=== PATIENT | female | born 1995 | race Caucasian/White ===

== ENCOUNTER 2023-09-07 11:10 | Observation (INO) ==
--- NOTE | 2023-09-07 11:41 | ED.PDOC ---
General ED Provider: Dr. PARKER GIORDANO MD Chief Complaint: Chest Pain Stated Complaint: Pt presents to ER from home accompanied by her and 8- mo old daughter c/o right-sided chest pain, chills, anxiety, nausea. 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 Denies any history of chemotherapy or radiation treatment. Was supposed to receive annual CT scans for surveillance but was lost to follow-up approximately 10 years ago. Unsure if she may be . Says pain is localized to lower ribs/RUQ and is colicky in nature. h/o SVT during previous . No other complaints. Time Seen by Provider: 09/07/23 11:30 Mode of Arrival: Walk-In Information Source: Patient Exam Limitations: No limitations Nursing and Triage Documentation Reviewed and Agree: Yes Cardiovascular Complaint Exam Chest Pain Complaint/Exam Onset: Sudden Duration: ~1-hour Symptoms Are: Still present Timing: Intermittent Initial Severity: Moderate Current Severity: Moderate Location: Reports Right lateral Pain Radiates: Reports Right shoulder Character: Reports Aching Aggravating: Reports Movement and Deep breaths Alleviating: Reports None Associated Signs and Symptoms: Reports Nausea Differential Diagnoses: Chest Wall Pain, GI Diseasae, Lower Resp. Infection and Pulmonary Embolism Review of Systems Review Of Systems Constitutional: Reports Chills All Other Systems: Reviewed and Negative [facility] Medical History (Updated 09/07/23 @ 18:37 by ARIS LAIRD, JAMES) Lung malignancy right lower lobe removed C34.90 - Malignant neoplasm of unspecified part of unspecified bronchus or lung (ICD-10) Supraventricular tachycardia during O99.419 - Diseases of the circulatory system complicating , unspecified trimester (ICD-10) I47.10 - Supraventricular tachycardia, unspecified (ICD-10) Family History (Updated 09/07/23 @ 18:38 by ARIS LAIRD RN) Mother Heart attack Social History (Updated 09/07/23 @ 18:38 by ARIS LAIRD RN) Smoking and tobacco status: Current some day smoker Alcohol intake: current Substance use type: does not use Surgical History (Updated 09/07/23 @ 18:37 by ARIS LAIRD RN) Hx of tonsillectomy Z90.89 - Acquired absence of other organs (ICD-10) Hx of appendectomy Z90.49 - Acquired absence of other specified parts of digestive tract (ICD- 10) Female Reproductive History Menstrual Hx Hysterectomy: No Hx Tubal Ligation: No Physical Exam Physical Exam Appearance: Reports Ill-appearing Ill-appearing: Mild Pain Distress: Mild Eyes: Reports EOMI ENT: Reports Ears normal, Nose normal and Oropharynx normal Neck: Supple Respiratory: Reports Airway patent, Breath sounds clear and Breath sounds equal Cardiovascular: Reports RRR and No murmur GI/: Reports Bowel sounds normal, Tender (RUQ; +Rogers's) and Other Musculoskeletal: Reports Normal strength and ROM intact Skin: Reports Warm and Dry Neurological: Reports Sensation intact and Motor intact Psychiatric: Reports Affect appropriate and Mood appropriate Interpretation EKG Interpretation EKG Interpretation By: ED Physician Time of EKG #1: 11:21 Rate: Normal Rhythm: Sinus Ectopy: None Worth: NL ST Segment: Normal Interpretation: Normal. Radiology Interpretation Radiology Interpretation By: ED Physician Radiology Results: Positive Exam Interpreted: CXR Xray Comments: RML infiltrate. Physician Notification Case Discussed Physician Notified: DILCIA Westbrook Time of Notification: 16:49 Comments: Spoke with on-call hospitalist (DILCIA Westbrook) regarding patient status and current workup and plan. Collaborated with supervising physician (Dr. Rupinder Vaca) who agreed to accept patient for observation admission. Will continue workup including MRCP and transfer to higher level facility if warranted. Admit/Transition Orders Entered by ED Provider: No (Hospitalist to write admission orders.) Admit To: Observation Critical Care Note Critical Care Note Total Critical Care Time (mins): 120 Course Course 09/07/23 11:30 09/07/23 11:30 Orders, Labs, Meds: Lab Review 09/07/23 09/07/23 09/07/23 11:30 11:39 11:45 WBC 6.88 RBC 4.63 Hgb 12.4 Hct 39.8 MCV 86.0 MCH 26.8 L MCHC 31.2 L RDW Coeff of Pao 13.4 Plt Count 462 H Immature Gran % (Auto) 0.4 Neut % (Auto) 59.4 Lymph % (Auto) 25.0 [place] % (Auto) 14.1 H Eos % (Auto) 0.7 Baso % (Auto) 0.4 Neut # (Auto) 4.1 Lymph # (Auto) 1.7 [place] # (Auto) 1.0 Eos # (Auto) 0.1 Baso # (Auto) 0.0 Immature Gran # (Auto) 0.0 Sodium 137.8 Potassium 3.86 Chloride 103.2 Carbon Dioxide 27.1 Anion Gap 11.36 BUN 16.7 Creatinine 0.64 Estimated GFR (MDRD) 110.00 BUN/Creatinine Ratio 26.09 Glucose 96.7 Calcium 9.08 Total Bilirubin 0.40 AST 41.0 H ALT 42.0 H Alkaline Phosphatase 136.2 H Total Creatine Kinase 72.6 Troponin I < 0.012 Total Protein 8.69 H Albumin 4.49 Globulin 4.20 Albumin/Globulin Ratio 1.06 Lipase 54.9 Procalcitonin < 0.05 D-Dimer 1635.73 H Urine Color Yellow Urine Clarity Clear Urine pH 6.0 Ur Specific [place] >=1.030 Urine Protein 1+ H Urine Glucose (UA) Negative Urine Ketones Negative Urine Blood Negative Urine Nitrite Negative Urine Bilirubin Negative Urine Urobilinogen 0.2 Ur Leukocyte Esterase Negative Ur Squamous Epith Cells 0-2 Urine Mucus 1+ Urine Test Negative Urine Opiates Screen Negative Ur Oxycodone Screen Negative Urine Methadone Screen Negative Ur Barbiturates Screen Negative U Tricyclic Antidepress Negative Ur Phencyclidine Scrn Negative Ur Amphetamine Screen Negative U Methamphetamines Scrn Negative U Benzodiazepines Scrn Negative Urine Cocaine Screen Negative U Cannabinoids Screen Negative Orders Category Date Time Status PLACE PATIENT OBSERVATION .TO MEDSURG (MONITORED BED ADMISSION 09/07/23 16:50 Active ) EKG-(ED ONLY) Stat CARDIO 09/07/23 11:31 Completed ACTIVITY .Up ad Negar CARE 09/07/23 16:50 Active INTAKE & OUTPUT Q8HR CARE 09/07/23 16:50 Completed NPO REMINDER: IMAGING ONCE CARE 09/07/23 12:33 Completed NPO REMINDER: IMAGING ONCE CARE 09/07/23 13:09 Completed NPO REMINDER: IMAGING ONCE CARE 09/07/23 13:42 Completed NPO REMINDER: IMAGING ONCE CARE 09/07/23 16:52 Completed TELEMETRY MONITORING TELE CARE 09/07/23 16:51 Active TELEMETRY MONITORING TELE CARE 09/07/23 17:01 Completed VITAL SIGNS Q4HR CARE 09/07/23 16:51 Active NPO [NOTHING BY MOUTH] DIETARY 09/07/23 Dinner Ordered REGULAR DIET DIETARY 09/07/23 Dinner Ordered CBC W/ AUTO DIFF DAILY@0600 LAB 09/08/23 06:00 Ordered CBC W/ AUTO DIFF DAILY@0600 LAB 09/09/23 06:00 Ordered CBC W/ AUTO DIFF Stat LAB 09/07/23 11:30 Completed COMPREHENSIVE METABOLIC PANEL DAILY@0600 LAB 09/08/23 06:00 Ordered COMPREHENSIVE METABOLIC PANEL DAILY@0600 LAB 09/09/23 06:00 Ordered COMPREHENSIVE METABOLIC PANEL Stat LAB 09/07/23 11:30 Completed COVID [SARS COV-2 RNA RAPID FANTA] Stat LAB 09/07/23 Completed CREATINE KINASE Stat LAB 09/07/23 11:30 Completed D-DIMER Stat LAB 09/07/23 11:30 Completed DRUG SCREEN, URINE, RAPID Stat LAB 09/07/23 11:45 Completed LIPASE Stat LAB 09/07/23 11:30 Completed PROCALCITONIN Stat LAB 09/07/23 11:39 Completed TROPONIN I Stat LAB 09/07/23 11:30 Completed URINALYSIS C & S IF INDICATED Stat LAB 09/07/23 11:45 Completed URINE Stat LAB 09/07/23 11:45 Completed Azithromycin Inj [Zithromax] 500 mg Meds 09/07/23 16:45 Discontinued 0.9 % Sodium Chloride [Sodium Chloride] 250 ml IV ONCE Ceftriaxone/D5w 2 gm Premix [Rocephin 2 gm/50 ml D5w] Meds 09/07/23 13:18 Discontinued 2 gm in 50 ml IV ONCE Ketorolac Tromethamine [Toradol] Meds 09/07/23 16:50 Active 15 mg IVP Q6HR PRN Sodium Chloride 0.9% [Sodium Chloride] 1,000 ml Meds 09/07/23 16:43 Discontinued IV 130 mls/hr Sodium Chloride 0.9% [Sodium Chloride] 1,000 ml Meds 09/07/23 12:34 Discontinued IV BOLUS CHEST, 1V AP ONLY Stat RADS 09/07/23 11:31 Completed CTA CHEST PE PROTOCOL Stat RADS 09/07/23 12:33 Completed MRI ABDOMEN W/WO CONTRAST Routine RADS 09/08/23 07:00 Ordered U/S ABDOMEN RT UPPER QUAD Stat RADS 09/07/23 13:42 Completed Medications Generic Name Dose Route Start Last Admin Trade Name Freq PRN Reason Stop Dose Admin Ketorolac Tromethamine 15 mg 09/07/23 16:50 Ketorolac Tromethamine 15 Mg/Ml Vial IVP 09/11/23 16:51 Q6HR PRN pain Discontinued Medications Generic Name Dose Route Start Last Admin Trade Name Freq PRN Reason Stop Dose Admin Sodium Chloride 1,000 mls @ 1,000 mls/hr 09/07/23 12:34 09/07/23 14:01 Sodium Chloride IV 09/07/23 13:33 Infused BOLUS STA Infusion CEFTRIAXONE/D5W 2 GM PREMIX 2 gm in 50 mls @ 100 mls/hr 09/07/23 13:18 09/07/23 13:31 Rocephin 2 Gm/50 Ml D5w IV 09/07/23 13:47 100 mls/hr ONCE ONE Administration Sodium Chloride 1,000 mls @ 130 mls/hr 09/07/23 16:43 09/07/23 18:16 Sodium Chloride IV 09/08/23 00:24 130 mls/hr .Q7H42M STA Administration Azithromycin 500 mg/ Sodium 250 mls @ 250 mls/hr 09/07/23 16:45 09/07/23 16:54 Chloride IV 09/07/23 17:44 250 mls/hr ONCE ONE Administration Vital Signs: Temp Pulse Resp BP Pulse Ox 09/07/23 12:32 77 20 108/70 98 09/07/23 11:22 98.1 F 90 16 124/75 99 PRICILLA Risk Score PRICILLA Risk Score: Risk Score Odds of by 30D 0 0.1 (0.1-0.2) 1 0.3 (0.2-0.3) 2 0.4 (0.3-0.5) 3 0.7 (0.6-0.9) 4 1.2 (1.0-1.5) 5 2.2 (1.9-2.6) 6 3.0 (2.5-3.6) 7 4.8 (3.8-6.1) Discharge Plan Discharge Patient Disposition: PLACED OBSERVATION Discharge Problem: Right middle lobe pulmonary infiltrate, Choledocholithiasis Did you review [place] UROLOGY TEACHER for ALL controlled substances?: Not Applicable ED Provider: PARKER GIORDANO Condition: Good Physician Progress Note: [address] Report : [id number] Signed Patient: ESTER FENTON Acct:[id number] Medical Record: [id number] : 1995 Loc: ED Room/Bed: Age/Sex: 27 / F ADM Status: REG ER Date of Service: 09/07/23 Ordering Physician: PARKER GIORDANO MD Procedure(s): CTA CHEST PE PROTOCOL Report Number(s): [id number] Accession Number(s): [id number] cc: PARKER GIORDANO MD EXAM: CT ANGIOGRAM CHEST WITH INTRAVENOUS CONTRAST 09/07/2023. MULTI PLANAR REFORMATTED IMAGES OBTAINED. MIP AND THREE-DIMENSIONAL RECONSTRUCTED IMAGES PROVIDED HISTORY: Elevated D-dimer chest pain COMPARISON: 09/07/2023 FINDINGS: The heart size appears within normal limits. There is no pericardial effusion. There are no pulmonary arterial filling defects to suggest pulmonary embolus. Right hilar lymphadenopathy is present with adjacent right middle lobe consolidation. Occlusion of small airways to the right middle lobe at the level of the right hilum. Posterior right hilar lymph node on image 104 measures 1.6 x 1.2 cm. Right hilar lymph node on image 99 measures 1.4 x 1.5 cm. Consolidation extends from this level peripherally throughout the right middle lobe. This likely represents pneumonia with adjacent right hilar lymphadenopathy. Malignancy cannot be excluded on this study. Short-term follow-up CT of the chest is recommended following appropriate medical management. Follow-up is needed to exclude underlying malignancy and document resolution. The lungs are otherwise well aerated. IMPRESSION: 1. No pulmonary embolus. 2. Right hilar lymphadenopathy. Reference measurements above. 3. Consolidation extends from the level of the right hilum peripheral through the right middle lobe. Occlusion of small airways extending to the right middle lobe at the level of the right hilar consolidation. This most likely represents pneumonia. Malignancy cannot be excluded. Short-term follow-up CT is recommended following appropriate medical management to document resolution and exclude underlying malignancy. All CT scans are performed using dose optimization techniques as appropriate to the performed exam and include at least one of the following: Automated exposure control, adjustment of the mA and/or kV according to size, and the use of iterative reconstruction technique. Dictated By: SARWAT CHAMPAGNE Signed By: SARWAT CHAMPAGNE Dictated Date/Time: 09/07/23 1325 Transcribed Date/Time: 09/07/23 1325 Signed Date/Time: 09/07/23 0453 Waiter And Cashier: Sarwat Champagne, ([id number]) Boiler Installer: SARWAT CHAMPAGNE (DLF) Report Date: 09/07/2023 15:10:00 Report Status: Final Begin of Report Content EXAM: RIGHT UPPER QUADRANT ULTRASOUND OF 09/07/2023 HISTORY: Pain. Gallstones COMPARISON: 05/15/2023, 07/04/2023 FINDINGS: The liver shows no acute abnormality. Antegrade portal flow. Gallstones are present. Gallbladder wall 2 mm thickness which is within normal limits. No pericholecystic fluid. There is suggestion of a stone within the common bile duct. Common bile duct approximately 6 mm diameter. The common bile duct previously measured 3 mm diameter. The pancreas shows no acute process. The right kidney measures up to 9.1 cm. No hydronephrosis. IMPRESSION: 1. Cholelithiasis. No evidence of gallbladder wall thickening. 2. Interval increase in size of the common bile duct up to 6 mm diameter. This previously measured 3 mm diameter. There is suggestion of choledocholithiasis. CT as well as MRCP could be considered for further evaluation. Electronically Signed By: Sarwat Champagne M.D. Signing Date: 2023-09-07 15:10
[2023-09-07 11:45] LABS: BASOPHILS % (AUTO) 0.4 % (0.0-3.0); EOSINOPHILS # (AUTO) 0.1 K/ul (0.0-0.7); EOSINOPHILS % (AUTO) 0.7 % (0.0-7.0); HEMATOCRIT 39.8 % (37.0-47.0); HEMOGLOBIN 12.4 g/dl (12.0-16.0); IMMATURE GRANULOCYTE % (AUTO) 0.4 % (0.0-5.0); LYMPHOCYTES # (AUTO) 1.7 K/uL (0.60-3.4); MEAN CORPUSCULAR HEMOGLOBIN 26.8 pg (27.0-31.0); MEAN CORPUSCULAR HGB CONC 31.2 (31.8-35.4); MONOCYTES % (AUTO) 14.1 (0-10); NEUTROPHILS # (AUTO) 4.1 K/ul (2.0-6.9); NEUTROPHILS % (AUTO) 59.4 % (42.2-75.2); PLATELET COUNT 462 10^3/uL (140-440); RDW COEFFICIENT OF VARIATION 13.4 % (11.6-14.8); RED BLOOD COUNT 4.63 10^6/ul (4.20-5.40); WHITE BLOOD COUNT 6.88 K/ul (4.6-10.2)
[2023-09-07 11:54] LABS: BILIRUBIN,URINE Negative (NEGATIVE); CLARITY,URINE Clear (CLEAR); COLOR,URINE Yellow (YELLOW); GLUCOSE, URINE (UA) Negative (NEGATIVE); KETONES,URINE Negative (NEGATIVE); LEUKOCYTE ESTERASE ,URINE Negative (NEGATIVE); NITRITE,URINE Negative (NEGATIVE); PROTEIN,URINE 1+ (NEGATIVE); URINE, BLOOD Negative (NEGATIVE); UROBILINOGEN,URINE 0.2 (0.2)
[2023-09-07 11:56] LABS: URINE PREGNANCY TEST NEGATIVE (NEGATIVE)
[2023-09-07 11:59] LABS: ALBUMIN 4.49 g/dL (3.5-5.0); ALKALINE PHOSPHATASE 136.2 U/L (38-126); BLOOD UREA NITROGEN 16.7 mg/dL (7-17); CALCIUM 9.08 mg/dL (8.4-10.2); CARBON DIOXIDE 27.1 mmol/L (22-30.0); CHLORIDE 103.2 mmol/L (98-107); CREATINE KINASE 72.6 U/L (30-135); CREATININE 0.64 mg/dL (0.60-1.30); GLUCOSE 96.7 mg/dL (74-106); LIPASE 54.9 U/L (23-300); POTASSIUM 3.86 mmol/L (3.5-5.1); SODIUM 137.8 mmol/L (134.5-145); TOTAL PROTEIN 8.69 g/dL (6.3-8.2)
[2023-09-07 12:04] LABS: AMPHETAMINE SCREEN,URINE NEGATIVE (NEGATIVE); BARBITURATE SCREEN,URINE NEGATIVE (NEGATIVE); BENZODIAZEPINES SCREEN,URINE NEGATIVE (NEGATIVE); CANNABINOID SCREEN,URINE NEGATIVE (NEGATIVE); COCAIN SCREEN,URINE NEGATIVE (NEGATIVE); METHADONE URINE SCREEN NEGATIVE (NEGATIVE); METHAMPHETAMINES SCREEN,URINE NEGATIVE (NEGATIVE); OPIATE SCREEN,URINE NEGATIVE (NEGATIVE); OXYCODONE URINE SCREEN NEGATIVE (NEGATIVE); PHENCYCLIDINE SCREEN,URINE NEGATIVE (NEGATIVE); TRICYCLIC ANTIDEPRESSANTS URIN NEGATIVE (NEGATIVE)
[2023-09-07 12:11] LABS: TROPONIN I < 0.012 ng/ml (0.0000-0.120)
[2023-09-07 12:20] LABS: SQUAMOUS EPITHELIAL CELL,UR 0-2 (0-5)
--- NOTE | 2023-09-07 12:20 | DI ---
EXAM: CHEST RADIOGRAPH TECHNIQUE: Single frontal chest radiograph. HISTORY: Chest pain COMPARISON: 05/15/2023 FINDINGS: There is a patchy infiltrate in the right lower lobe. The left lung is clear. No effusions. The heart size is normal. The osseous structures are unremarkable. IMPRESSION: 1. Findings suggesting developing right lower lobe pneumonia
[2023-09-07 12:21] LABS: MUCUS,URINE 1+ (NOT PRESENT)
[2023-09-07] MEDS ORDERED: SODIUM CHLORIDE 1,000 ML IV STA ×2 (12:34→16:43)
[2023-09-07] MEDS ORDERED: ROCEPHIN 2 GM/50 ML D5W 2 GM/50 ML BAG IV ONE (13:18)
--- NOTE | 2023-09-07 13:43 | CT ---
EXAM: CT ANGIOGRAM CHEST WITH INTRAVENOUS CONTRAST 09/07/2023. MULTI PLANAR REFORMATTED IMAGES OBTAI LUCIA. MIP AND THREE-DIMENSIONAL RECONSTRUCTED IMAGES PROVIDED HISTORY: Elevated D-dimer chest pain COMPARISON: 09/07/2023 FINDINGS: The heart size appears within normal limits. There is no pericardial effusion. There are no pulmonary arterial filling defects to suggest pulmonary embolus. Right hilar lymphadenopathy is present with adjacent right middle lobe consolidation. Occlusion of s mall airways to the right middle lobe at the level of the right hilum. Posterior right hilar lymph n ode on image 104 measures 1.6 x 1.2 cm. Right hilar lymph node on image 99 measures 1.4 x 1.5 cm. C onsolidation extends from this level peripherally throughout the right middle lobe. This likely repr esents pneumonia with adjacent right hilar lymphadenopathy. Malignancy cannot be excluded on this st udy. Short-term follow-up CT of the chest is recommended following appropriate medical management. Follow-up is needed to exclude underlying malignancy and document resolution. The lungs are otherwis e well aerated. IMPRESSION: 1. No pulmonary embolus. 2. Right hilar lymphadenopathy. Reference measurements above. 3. Consolidation extends from the level of the right hilum peripheral through the right middle lobe. Occlusion of small airways extending to the right middle lobe at the level of the right hilar conso lidation. This most likely represents pneumonia. Malignancy cannot be excluded. Short-term follow- up CT is recommended following appropriate medical management to document resolution and exclude unde rlying malignancy. All CT scans are performed using dose optimization techniques as appropriate to the performed exam an d include at least one of the following: Automated exposure control, adjustment of the mA and/or kV according t o size, and the use of iterative reconstruction technique.
--- NOTE | 2023-09-07 15:15 | US ---
EXAM: RIGHT UPPER QUADRANT ULTRASOUND OF 09/07/2023 HISTORY: Pain. Gallstones COMPARISON: 05/15/2023, 07/04/2023 FINDINGS: The liver shows no acute abnormality. Antegrade portal flow. Gallstones are present. Gal lbladder wall 2 mm thickness which is within normal limits. No pericholecystic fluid. There is suggestion of a stone within the common bile duct. Common bile duct approximately 6 mm diam eter. The common bile duct previously measured 3 mm diameter. The pancreas shows no acute process. The right kidney measures up to 9.1 cm. No hydronephrosis. IMPRESSION: 1. Cholelithiasis. No evidence of gallbladder wall thickening. 2. Interval increase in size of the common bile duct up to 6 mm diameter. This previously measured 3 mm diameter. There is suggestion of choledocholithiasis. CT as well as MRCP could be considered f or further evaluation.
[2023-09-07] MEDS ORDERED: ZITHROMAX 500 MG in SODIUM CHLORIDE 250 ML IV ONE (16:45)
[2023-09-07] MEDS ORDERED: TORADOL IVP PRN (16:50)
[2023-09-07 17:52] LABS: SARS COV-2 RNA RAPID NAAT NEGATIVE (NEGATIVE)
[2023-09-07 18:45] VITALS: BMI 31.5
[2023-09-08 06:18] LABS: BASOPHILS % (AUTO) 0.9 % (0.0-3.0); EOSINOPHILS # (AUTO) 0.1 K/ul (0.0-0.7); EOSINOPHILS % (AUTO) 1.7 % (0.0-7.0); HEMOGLOBIN 10.4 g/dl (12.0-16.0); IMMATURE GRANULOCYTE % (AUTO) 0.2 % (0.0-5.0); LYMPHOCYTES # (AUTO) 1.4 K/uL (0.60-3.4); LYMPHOCYTES % (AUTO) 29.9 (10.0-50.0); MEAN CORPUSCULAR HEMOGLOBIN 27.2 pg (27.0-31.0); MEAN CORPUSCULAR HGB CONC 31.3 (31.8-35.4); MEAN CORPUSCULAR VOLUME 86.9 fl (81.0-99.0); MONOCYTES # (AUTO) 0.8 K/uL (0.4-2.0); MONOCYTES % (AUTO) 17.9 (0-10); NEUTROPHILS # (AUTO) 2.3 K/ul (2.0-6.9); NEUTROPHILS % (AUTO) 49.4 % (42.2-75.2); PLATELET COUNT 373 10^3/uL (140-440); RDW COEFFICIENT OF VARIATION 13.2 % (11.6-14.8); RED BLOOD COUNT 3.82 10^6/ul (4.20-5.40); WHITE BLOOD COUNT 4.69 K/ul (4.6-10.2)
[2023-09-08 06:19] LABS: HEMATOCRIT 33.2 % (37.0-47.0)
[2023-09-08 06:25] LABS: ALANINE AMINOTRANSFERASE 30.9 U/L (0-35); ALBUMIN 3.68 g/dL (3.5-5.0); ALKALINE PHOSPHATASE 103.2 U/L (38-126); ASPARTATE AMINO TRANSFERASE 28.2 U/L (14-36); BILIRUBIN,TOTAL 0.44 mg/dL (0.2-1.3); BLOOD UREA NITROGEN 16.4 mg/dL (7-17); CALCIUM 8.42 mg/dL (8.4-10.2); CARBON DIOXIDE 25.5 mmol/L (22-30.0); CHLORIDE 106.7 mmol/L (98-107); CREATININE 0.66 mg/dL (0.60-1.30); GLUCOSE 89.8 mg/dL (74-106); POTASSIUM 4.33 mmol/L (3.5-5.1); SODIUM 137.3 mmol/L (134.5-145); TOTAL PROTEIN 7.16 g/dL (6.3-8.2)
[2023-09-08 09:59] VITALS: RESP 18
--- NOTE | 2023-09-08 15:13 | MRI ---
EXAM: MRI ABDOMEN WITH AND WITHOUT CONTRAST COMPARISON: Ultrasound abdomen 09/07/23 HISTORY: Right upper quadrant pain. TECHNIQUE: Multiplanar multisequence MRI of the abdomen before and after administration of IV contras t. MRCP including 3-D MRCP sequence performed. FINDINGS: Liver: Normal contour. No hepatic steatosis. No suspicious hepatic lesions. Gallbladder: Gallbladder sludge. No surrounding inflammatory changes. Bile ducts: No intra or extrahepatic biliary ductal dilatation. CBD measures 0.5 cm. No visible cho ledocholithiasis. Spleen: The spleen is not enlarged. Pancreas: Normal signal intensity and enhancement. The main pancreatic duct is not dilated. Adrenal glands: Within normal limits. Kidneys: No hydronephrosis. Vessels: The major vessels are patent. Bowel: Normal caliber. Lymph nodes: Few lymph nodes in the penny hepatis measuring up to 1.7 cm in short axis, nonspecific and likely reactive. Attention on follow-up recommended. Osseous structures: No acute findings. Lower thorax: Bibasilar atelectasis and/or pneumonia; right greater than left. Abdominal wall: Within normal limits. IMPRESSION: - Gallbladder sludge. No surrounding inflammatory changes. No intra or extrahepatic biliary ductal dilatation. CBD measures 0.5 cm. No visible choledocholithiasis. - Gallbladder sludge. No surrounding inflammatory changes. - Few lymph nodes in the penny hepatis measuring up to 1.7 cm in short axis, nonspecific and likely r eactive. Attention on follow-up recommended. - Bibasilar atelectasis and/or pneumonia; right greater than left.
[2023-09-08 15:29] VITALS: BP 125/78; PULSE 89; TEMP 97.8
--- NOTE | 2023-09-08 17:27 | PCM.SS ---
Provider Provider: ETIENNE CRUZ, [facility] Ad[facility] Date Admission Date: 09/07/23 Discharge Date Discharge Date: 09/08/23 Chief Complaint Reason For Visit: CHEST PAIN,CHOLECOCHOLITHIASIS History of Present Illness History of Present Illness: Admitted 09/07/23 18:08, this 27 year old /WHITE/F presented to the ER with right sided chest pain, anxiety, chills, nausea. 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 Describes the pain as colicky. Has pmh of lung cancer with RLL lobectomy and gallstones. Did not require chemo or radiation treatment. Was supposed to have annual CT scans for surveillance but did not continue to follow-up approx. 10 years ago. Chest pain work-up negative. Scan of abdomen showed cholelithiasis concern for choledoco. Admitted to med/surg for MRCP to rule out. Was given azith and rocephin due to suspicion for pneumonia on scans. Not continued due to no elevation in white count and no symptoms. Patient denied any further pain throughout the night and on exam. Only reports complaints of fatigue. [facility] Medical History Lung malignancy right lower lobe removed C34.90 - Malignant neoplasm of unspecified part of unspecified bronchus or lung (ICD-10) Supraventricular tachycardia during O99.419 - Diseases of the circulatory system complicating , unspecified trimester (ICD-10) I47.10 - Supraventricular tachycardia, unspecified (ICD-10) Surgical History Hx of tonsillectomy Z90.89 - Acquired absence of other organs (ICD-10) Hx of appendectomy Z90.49 - Acquired absence of other specified parts of digestive tract (ICD- 10) Family History Mother Heart attack Social History Smoking and tobacco status: Current some day smoker Alcohol intake: current Substance use type: does not use Medications Mecications: Medications at Discharge (Home Meds & RX) omeprazole 40 mg capsule,delayed release 40 mg PO DAILY 09/07/23 Allergies Allergies Allergy/AdvReac Type Severity Reaction Status Date / Time No Known Allergies Allergy Verified 09/07/23 11:30 Review of Systems Constitutional: Reports No symptoms and Fatigue Head: Reports Normocephalic and Atraumatic Eyes: Reports No symptoms Ears: Reports No symptoms Nose: Reports No symptoms Mouth: Reports No symptoms Throat: Reports No symptoms Cardiovascular: Reports Chest pain Respiratory: Reports No symptoms Gastrointestinal: Reports No symptoms Genitourinary: Reports No Symptoms Musculoskeletal: Reports No symptoms Endocrine: Reports No symptoms Hematology: Reports No symptoms Immunology: Reports No symptoms Neurological: Reports No symptoms Psychiatric: Reports No symptoms Physical Examination Appearance: Positive No Apparent Distress and Alert and Oriented x3 Head: Positive Normocephalic Eyes: Positive MIKAELA Neck: Positive Supple, Non-Tender and Trachea Midline Heart: Positive RRR and No Murmurs Respiratory: Positive Airway patent, Breath Sounds Clear, Bilaterally and Breath Sounds Equal GI/: Positive Soft, Nontender, Bowel sounds normal and No Distention Extremities: Positive Pedal Pulses Palpable Bilaterally Neurological: Positive Normal Gait, Sensation Intact, Motor Intact, Reflexes Intact, Alert and Oriented Psychiatric: Positive Normal Judgement, Normal Insight and Affect Appropriate Vital Signs (Last 4 Hours) Vital Signs Last 4 Hours: Vital Signs: Last 4 Hours 09/08/23 13:57 09/08/23 14:00 09/08/23 14:50 Temperature 97.8 F Temperature Source Tympanic Pulse Rate 89 Respiratory Rate 18 Blood Pressure 125/78 Blood Pressure Mean 93 Blood Pressure Location Right Arm Blood Pressure Position Sitting O2 Sat by Pulse Oximetry 98 Oxygen Delivery Method Room Air Room Air Room Air Labs This Visit Labs This Visit: Labs This Visit 09/07/23 09/07/23 09/07/23 11:30 11:39 11:45 WBC 6.88 RBC 4.63 Hgb 12.4 Hct 39.8 MCV 86.0 MCH 26.8 L MCHC 31.2 L RDW Coeff of Pao 13.4 Plt Count 462 H Immature Gran % (Auto) 0.4 Neut % (Auto) 59.4 Lymph % (Auto) 25.0 [place] % (Auto) 14.1 H Eos % (Auto) 0.7 Baso % (Auto) 0.4 Neut # (Auto) 4.1 Lymph # (Auto) 1.7 [place] # (Auto) 1.0 Eos # (Auto) 0.1 Baso # (Auto) 0.0 Immature Gran # (Auto) 0.0 Sodium 137.8 Potassium 3.86 Chloride 103.2 Carbon Dioxide 27.1 Anion Gap 11.36 BUN 16.7 Creatinine 0.64 Estimated GFR (MDRD) 110.00 BUN/Creatinine Ratio 26.09 Glucose 96.7 Calcium 9.08 Total Bilirubin 0.40 AST 41.0 H ALT 42.0 H Alkaline Phosphatase 136.2 H Total Creatine Kinase 72.6 Troponin I < 0.012 Total Protein 8.69 H Albumin 4.49 Globulin 4.20 Albumin/Globulin Ratio 1.06 Lipase 54.9 Procalcitonin < 0.05 D-Dimer 1635.73 H Urine Color Yellow Urine Clarity Clear Urine pH 6.0 Ur Specific [place] >=1.030 Urine Protein 1+ H Urine Glucose (UA) Negative Urine Ketones Negative Urine Blood Negative Urine Nitrite Negative Urine Bilirubin Negative Urine Urobilinogen 0.2 Ur Leukocyte Esterase Negative Ur Squamous Epith Cells 0-2 Urine Mucus 1+ Urine Test Negative Urine Opiates Screen Negative Ur Oxycodone Screen Negative Urine Methadone Screen Negative Ur Barbiturates Screen Negative U Tricyclic Antidepress Negative Ur Phencyclidine Scrn Negative Ur Amphetamine Screen Negative U Methamphetamines Scrn Negative U Benzodiazepines Scrn Negative Urine Cocaine Screen Negative U Cannabinoids Screen Negative SARS CoV-2 RNA Rapid FANTA 09/07/23 09/08/23 Unknown 05:21 WBC 4.69 RBC 3.82 L Hgb 10.4 L Hct 33.2 L D MCV 86.9 MCH 27.2 MCHC 31.3 L RDW Coeff of Pao 13.2 Plt Count 373 Immature Gran % (Auto) 0.2 Neut % (Auto) 49.4 Lymph % (Auto) 29.9 [place] % (Auto) 17.9 H Eos % (Auto) 1.7 Baso % (Auto) 0.9 Neut # (Auto) 2.3 Lymph # (Auto) 1.4 [place] # (Auto) 0.8 Eos # (Auto) 0.1 Baso # (Auto) 0.0 Immature Gran # (Auto) 0.0 Sodium 137.3 Potassium 4.33 Chloride 106.7 Carbon Dioxide 25.5 Anion Gap 9.43 BUN 16.4 Creatinine 0.66 Estimated GFR (MDRD) 107.00 BUN/Creatinine Ratio 24.84 Glucose 89.8 Calcium 8.42 Total Bilirubin 0.44 AST 28.2 ALT 30.9 Alkaline Phosphatase 103.2 D Total Creatine Kinase Troponin I Total Protein 7.16 Albumin 3.68 Globulin 3.48 Albumin/Globulin Ratio 1.05 Lipase Procalcitonin D-Dimer Urine Color Urine Clarity Urine pH Ur Specific [place] Urine Protein Urine Glucose (UA) Urine Ketones Urine Blood Urine Nitrite Urine Bilirubin Urine Urobilinogen Ur Leukocyte Esterase Ur Squamous Epith Cells Urine Mucus Urine Test Urine Opiates Screen Ur Oxycodone Screen Urine Methadone Screen Ur Barbiturates Screen U Tricyclic Antidepress Ur Phencyclidine Scrn Ur Amphetamine Screen U Methamphetamines Scrn U Benzodiazepines Scrn Urine Cocaine Screen U Cannabinoids Screen SARS CoV-2 RNA Rapid FANTA Negative Imaging Imaging: EXAM: CT ANGIOGRAM CHEST WITH INTRAVENOUS CONTRAST 09/07/2023. MULTI PLANAR REFORMATTED IMAGES OBTAINED. MIP AND THREE-DIMENSIONAL RECONSTRUCTED IMAGES PROVIDED FINDINGS: The heart size appears within normal limits. There is no pericardial effusion. There are no pulmonary arterial filling defects to suggest pulmonary embolus. Right hilar lymphadenopathy is present with adjacent right middle lobe consolidation. Occlusion of small airways to the right middle lobe at the level of the right hilum. Posterior right hilar lymph node on image 104 measures 1.6 x 1.2 cm. Right hilar lymph node on image 99 measures 1.4 x 1.5 cm. Con solidation extends from this level peripherally throughout the right middle lobe. This likely represents pneumonia with adjacent right hilar lymphadenopathy. Malignancy cannot be excluded on this study. Short-term follow-up CT of the chest is recommended following appropriate medical management. Follow-up is needed to exclude underlying malignancy and document resolution. The lungs are otherwise well aerated. IMPRESSION: 1. No pulmonary embolus. 2. Right hilar lymphadenopathy. Reference measurements above. 3. Consolidation extends from the level of the right hilum peripheral through the right middle lobe. Occlusion of small airways extending to the right middle lobe at the level of the right hilar consolidation. This most likely represents pneumonia. Malignancy cannot be excluded. Short-term follow-up CT is recommended following appropriate medical management to document resolution and exclude underlying malignancy. EXAM: RIGHT UPPER QUADRANT ULTRASOUND OF 09/07/2023 FINDINGS: The liver shows no acute abnormality. Antegrade portal flow. Gallstones are present. Gallbladder wall 2 mm thickness which is within normal limits. No pericholecystic fluid. There is suggestion of a stone within the common bile duct. Common bile duct approximately 6 mm diameter. The common bile duct previously measured 3 mm diameter. The pancreas shows no acute process. The right kidney measures up to 9.1 cm. No hydronephrosis. IMPRESSION: 1. Cholelithiasis. No evidence of gallbladder wall thickening. 2. Interval increase in size of the common bile duct up to 6 mm diameter. This previously measured 3 mm diameter. There is suggestion of choledocholithiasis. CT as well as MRCP could be considered for further evaluation. EXAM: MRI ABDOMEN WITH AND WITHOUT CONTRAST FINDINGS: Liver: Normal contour. No hepatic steatosis. No suspicious hepatic lesions. Gallbladder: Gallbladder sludge. No surrounding inflammatory changes. Bile ducts: No intra or extrahepatic biliary ductal dilatation. CBD measures 0.5 cm. No visible choledocholithiasis. Spleen: The spleen is not enlarged. Pancreas: Normal signal intensity and enhancement. The main pancreatic duct is not dilated. Adrenal glands: Within normal limits. Kidneys: No hydronephrosis. Vessels: The major vessels are patent. Bowel: Normal caliber. Lymph nodes: Few lymph nodes in the penny hepatis measuring up to 1.7 cm in short axis, nonspecific and likely reactive. Attention on follow-up recommended. Osseous structures: No acute findings. Lower thorax: Bibasilar atelectasis and/or pneumonia; right greater than left. Abdominal wall: Within normal limits. IMPRESSION: - Gallbladder sludge. No surrounding inflammatory changes. No intra or extrahepatic biliary ductal dilatation. CBD measures 0.5 cm. No visible choledocholithiasis. - Gallbladder sludge. No surrounding inflammatory changes. - Few lymph nodes in the penny hepatis measuring up to 1.7 cm in short axis, nonspecific and likely reactive. Attention on follow-up recommended. - Bibasilar atelectasis and/or pneumonia; right greater than left. Review Review Statement: I have independently reviewed and interpreted the labs/EKGs/imaging that were ordered by the ER provider. I have reviewed all outside records that are available currently in our EMR including imaging/notes/labs from previous visits. Plan Reccomendations/Plan: 1. Cholelithiasis/choledocolithiasis r/o - MRCP completed and negative, pain resolved, tolerating intake 2. Consolidation to R lung, right hilar lymphadenopathy, and penny hepatits ly mphadenopathy concerned for malignancy - referral sent to [facility] and appointment made for follow-up upon discharge Additional Planning: Case discussed with ED Physician, Dr. Giordano. DVT Prophylaxis: Up ad ricardo Disposition: Admit to: Med/Surg Observation Full Code If patient discharged with Left Ventricular Systolic Dysfunction: NA Discharged with a beta nathalie? [] If no, why not? [] Discharged with an liam/arb? [] If no, why not? [] Regular diet Activity as tolerated Follow-up with PCP as scheduled and [facility] as scheduled. Review With Patient Reviewed with Patient and Family: Patient and family have been counseled on condition and care plan and have no immediate questions. I have personally discussed and reviewed the patient's visit/current labs/imaging/decision making with Dr. Rupinder Vaca, my supervising attending. Total number of minutes spent with patient 85 min. More than 50% of the time spent with this patient was devoted to counseling and coordination of care. Time of Admission:09/07/23 18:08 Time of Discharge: 09/08/23 15:48 Discharge Plan Discharge Discharge Orders: Discharge Patient (ONCE); Ordered 09/08/23 Ordered By: LUIS SKELTON Activity Restrictions/Additional Instructions: DISCHARGE HOME TODAY ACTIVITY TOLERATED DIET TOLERATED CONTINUE SAME HOME MEDICATIONS PREVIOUSLY PRESCRIBED PLEASE KEEP YOUR EXISTING PRIMARY CARE PROVIDER APPOINTMENT FOR 09/12/23 AT 10:30AM. PLEASE CALL HER OFFICE IF YOU NEED TO RESCHEDULE OR CANNOT KEEP YOU EXISTING APPOINTMENT. PHONE NUMBER FOR DR. GIORDANO OFFICE IS [phone]. ADDRESS IS: [address] [place] [address]. A REFERRAL HAS BEEN FAXED TO [facility]. THEY WILL REVIEW YOUR REFERRAL AND CALL YOU WITH AN APPOINTMENT. THE ADDRESS IS [address] [place] [address] [place] [address]. THE PHONE NUMBER IS [phone]. PLEASE CONTACT THEM EARLY NEXT WEEK AND ASK FOR MEDICAL ONCOLOGY APPOINTMENTS IF YOU DO NOT GET A RETURN CALL OR CALL [facility] AT [phone]. Instructions: Chest Pain (GEN), MRCP (Magnetic Resonance Cholangiopancreatography) (GEN) Patient Disposition: HOME SELF-CARE Prescriptions: Continued omeprazole 40 mg capsule,delayed release(DR/EC) 40 mg PO DAILY Patient Comments: TAKE 1 CAPSULE BY MOUTH EVERY DAY Did you review [place] COMMISSIONED SECURITY OFFICER for ALL controlled substances?: Not Applicable Discussed opioids are addictive and Narcan is available by prescription or from pharmacy.: No Condition: Good
== END 2023-09-08 15:48 | disposition home or self-care (01) ==
LOC: ED 11:10 → MEDSURG B 11:10
PROVIDERS: ADMIT Hospitalist; ATTEND Nurse Practitioner Family
DX: Z20.822 Contact with and (suspected) exposure to COVID-19; R91.8 Other nonspecific abnormal finding of lung field; F17.210 Nicotine dependence, cigarettes, uncomplicated; K80.80 Other cholelithiasis without obstruction; R59.0 Localized enlarged lymph nodes; Z85.118 Personal history of other malignant neoplasm of bronchus and lung